=== PATIENT | male | born 1960 | race American Indian/Alaskan Native ===

== ENCOUNTER 2019-07-10 19:59 | Emergency (ER) | payer SELFPAY ==
[2019-07-10 20:45] VITALS: BP 125/72
--- NOTE | 2019-07-10 21:33 | Event Note ---
ED Screening Note Date of service: 07/10/19 Time: 21:30 ED Screening Note: This is a 58 y.o. M. that presents to the ER with chest pain since this morning. Current smoker Reports chest pain is worse than usual. This initial assessment/diagnostic orders/clinical plan/treatment(s) is/are subject to change based on patients health status, clinical progression and re- assessment by fellow clinical providers in the ED. Further treatment and workup at subsequent clinical providers discretion. Patient/guardian urged not to elope from the ED as their condition may be serious if not clinically assessed and managed. Initial orders include: Labs, ekg, & cxr
[2019-07-10 22:08] LABS: Basophils # (Auto) 0.1 K/mm3 (0.0-0.1); Basophils % (Auto) 1.4 % (0.0-1.8); Eosinophils # (Auto) 0.1 K/mm3 (0.0-0.4); Hematocrit 36.9 % (35.5-45.6); Hemoglobin 12.5 gm/dl (11.8-15.2); Lymphocytes # (Auto) 1.7 K/mm3 (1.2-5.4); Lymphocytes % (Auto) 40.5 % (13.4-35.0); Mean Corpuscular HGB Conc 34 % (32-34); Mean Corpuscular Volume 93 fl (84-94); Monocytes # (Auto) 0.3 K/mm3 (0.0-0.8); Monocytes % (Auto) 8.1 % (0.0-7.3); Platelet Count 194 K/mm3 (140-440); Red Blood Count 3.99 M/mm3 (3.65-5.03); Red Cell Distribution Width 13.8 % (13.2-15.2)
[2019-07-10 22:19] LABS: BUN/Creatinine Ratio 15; Blood Urea Nitrogen 12 mg/dL (9-20); Hemolysis Index 8
--- NOTE | 2019-07-10 22:37 | XRay Report ---
CHEST 1 VIEW INDICATION: MAIN: Chest Pain Pt. c/o pain to left side neck that radiates to shoulder and chest. COMPARISON: None FINDINGS: Support devices: None Heart: Normal Lungs/Pleura: No acute pulmonary or pleural findings. IMPRESSION: 1. No acute disease. Signer Name: Liu Cross MD Signed: 07/10/2019 10:33 PM Workstation Name: [email or web address]
[2019-07-10] MEDS ORDERED: KETOROLAC 30 MG/1 ML INJ IM ONE (23:41)
[2019-07-10] MEDS ORDERED: CYCLOBENZAPRINE 10 MG TAB PO ONE (23:41)
--- NOTE | 2019-07-11 01:30 | Emergency Department Report ---
ED General Adult HPI - General Chief complaint: Chest Pain Stated complaint: CHEST AND LT SHOULDER PAIN Time Seen by Provider: 07/10/19 21:30 Source: patient Mode of arrival: Ambulatory Limitations: No Limitations - History of Present Illness Initial comments: Patient is a 58-year-old male who presents emergency room with complaints of generalized chest pain that began 3 days ago. He states that he also has left- sided neck pain and left-sided shoulder pain. He describes the pain as a tightness and spasms. He states his pain is worse with movement and it is difficult to get comfortable to sleep. He denies any shortness of breath, nausea, vomiting, diaphoresis, leg swelling. He states his only past medical history is anemia and bradycardia. He states that he has an adverse reaction to ibuprofen which gives him flatulence. Patient states that he is a smoker. Severity scale (0 -10): 3 - Related Data Previous Rx's Medication Instructions Recorded Last Taken Type Cyclobenzaprine HCl [Flexeril 5 MG 5 mg PO QHS PRN #12 tablet 07/11/19 Unknown Rx TAB] Naproxen [EC-Naproxen] 375 mg PO BID PRN #14 tablet. 07/11/19 Unknown Rx Allergies Allergy/AdvReac Type Severity Reaction Status Date / Time ibuprofen Allergy Unknown Verified 07/10/19 20:02 ED Review of Systems ROS: Stated complaint: CHEST AND LT SHOULDER PAIN Other details as noted in HPI Comment: All other systems reviewed and negative ED Past Medical Hx - Past Medical History Previous Medical History?: Yes Additional medical history: Hypotension - Surgical History Past Surgical History?: No - Social History Smoking Status: Current Every Day Smoker Substance Use Type: None - Medications Home Medications: Home Medications Medication Instructions Recorded Confirmed Last Taken Type Cyclobenzaprine HCl [Flexeril 5 MG 5 mg PO QHS PRN #12 tablet 07/11/19 Unknown Rx TAB] Naproxen [EC-Naproxen] 375 mg PO BID PRN #14 tablet. 07/11/19 Unknown Rx ED Physical Exam - General Limitations: No Limitations General appearance: alert, in no apparent distress - Head Head exam: Present: atraumatic, normocephalic - Eye Eye exam: Present: normal appearance - ENT ENT exam: Present: mucous membranes moist - Neck Neck exam: Present: normal inspection, tenderness (TTP over the left SCM muscle, no crepitus, no ecchymosis, no deformity, no carotid bruit bilaterally, no midline C-spine tenderness, no step offs, no deformities), full ROM - Respiratory Respiratory exam: Present: normal lung sounds bilaterally, chest wall tenderness (mild generalized anterior chest wall TTP). Absent: respiratory distress, wheezes, rales, rhonchi, stridor, accessory muscle use, decreased breath sounds, prolonged expiratory - Cardiovascular Cardiovascular Exam: Present: regular rate, normal rhythm, normal heart sounds. Absent: systolic murmur, diastolic murmur, rubs, gallop - Extremities Exam Extremities exam: Present: other (TTP over the left trapezius muscle, no deformity, no crepitus, no ecchymosis) - Neurological Exam Neurological exam: Present: alert, oriented X3 - Psychiatric Psychiatric exam: Present: normal affect, normal mood - Skin Skin exam: Present: warm, dry, intact ED Course Vital Signs 07/10/19 07/10/19 07/11/19 20:10 21:30 01:41 Temperature 98.4 F 98.4 F Pulse Rate 62 60 52 L Respiratory 18 18 17 Rate Blood Pressure 125/72 125/72 O2 Sat by Pulse 100 100 99 Oximetry ED Medical Decision Making - Lab Data Result diagrams: 07/10/19 21:45 07/10/19 21:45 Lab Results 07/10/19 07/10/19 07/11/19 Range/Units 21:45 21:45 00:24 WBC 4.2 L (4.5-11.0) K/mm3 RBC 3.99 (3.65-5.03) M/mm3 Hgb 12.5 (11.8-15.2) gm/dl Hct 36.9 (35.5-45.6) % MCV 93 (84-94) fl MCH 31 (28-32) pg MCHC 34 (32-34) % RDW 13.8 (13.2-15.2) % Plt Count 194 (140-440) K/mm3 Lymph % (Auto) 40.5 H (13.4-35.0) % [place] % (Auto) 8.1 H (0.0-7.3) % Eos % (Auto) 3.0 (0.0-4.3) % Baso % (Auto) 1.4 (0.0-1.8) % Lymph # 1.7 (1.2-5.4) K/mm3 [place] # 0.3 (0.0-0.8) K/mm3 Eos # 0.1 (0.0-0.4) K/mm3 Baso # 0.1 (0.0-0.1) K/mm3 Seg Neutrophils % 47.0 (40.0-70.0) % Seg Neutrophils # 2.0 (1.8-7.7) K/mm3 Sodium 143 (137-145) mmol/L Potassium 4.1 (3.6-5.0) mmol/L Chloride 106.6 (98-107) mmol/L Carbon Dioxide 27 (22-30) mmol/L Anion Gap 14 mmol/L BUN 12 (9-20) mg/dL Creatinine 0.8 (0.8-1.5) mg/dL Estimated GFR > 60 ml/min BUN/Creatinine Ratio 15 % Glucose 81 (75-100) mg/dL Calcium 9.0 (8.4-10.2) mg/dL Troponin T < 0.010 < 0.010 (0.00-0.029) ng/mL - EKG Data EKG shows normal: sinus rhythm, axis, intervals, QRS complexes, ST-T waves Rate: bradycardia - Radiology Data Radiology results: report reviewed CHEST 1 VIEW INDICATION: MAIN: Chest Pain Pt. c/o pain to left side neck that radiates to shoulder and chest. COMPARISON: None FINDINGS: Support devices: None Heart: Normal Lungs/Pleura: No acute pulmonary or pleural findings. IMPRESSION: 1. No acute disease. Signer Name: Liu Cross MD Signed: 07/10/2019 10:33 PM Workstation Name: [id number] Transcribed By: TM Dictated By: Liu Cross MD Electronically Authenticated By: Liu Cross MD Signed Date/Time: 07/10/192232 DD/ 31 TD/TT: - Medical Decision Making Patient is a 58-year-old male who presents emergency room with complaints of generalized chest pain that began 3 days ago. He states that he also has left- sided neck pain and left-sided shoulder pain. He describes the pain as a tightness and spasms. He states his pain is worse with movement and it is difficult to get comfortable to sleep. He denies any shortness of breath, nausea, vomiting, diaphoresis, leg swelling. He states his only past medical history is anemia and bradycardia. He states that he has an adverse reaction to ibuprofen which gives him flatulence. Patient states that he is a smoker. vitals are normal. on exam: TTP over the left SCM muscle, no crepitus, no ecchymosis, no deformity, no carotid bruit bilaterally, no midline C-spine tenderness, no step offs, no deformities, mild generalized anterior chest wall TTP, TTP over the left trapezius muscle, no deformity, no crepitus, no ecchymosis. Patient given Toradol and Flexeril and his discomfort significantly improved. Chest x-ray with no acute process. EKG within normal limits. Patient is low risk for PE based on wells criteria. Labs are stable. Troponin is negative 2. pts heart score is 2. SEGUN score is 0. Patient is at a low risk for cardiac event. Will have patient follow up with a [employer] worker as an outpatient for chest pain. will give patient prescription for naproxen and Flexeril due to muscle strain. advised pt Please take medication as prescribed as needed. Do not drive or operate heavy machinery while taking muscle relaxer. May use ice pack, heating pad, rest, epsom salt bath. Follow-up with a [employer] worker and a primary care doctor in the next 2-3 days. Return to the emergency room for any new or worsening symptoms. - Differential Diagnosis ACS, PE, carotid stenosis, aortic aneurysm, dissection, muscle strain Critical care attestation.: If time is entered above; I have spent that time in minutes in the direct care of this critically ill patient, excluding procedure time. ED Disposition Clinical Impression: Atypical chest pain, Sternocleidomastoid muscle tenderness Strain of left trapezius muscle Qualifiers: Encounter type: initial encounter Qualified Code(s): S46.812A - Strain of other muscles, fascia and tendons at shoulder and upper arm level, left arm, initial encounter Disposition: TO HOME OR SELFCARE Is pt being admited?: No Does the pt Need Aspirin: No Condition: Stable Instructions: Chest Pain (ED), Muscle Strain (ED) Additional Instructions: Please take medication as prescribed as needed. Do not drive or operate heavy machinery while taking muscle relaxer. May use ice pack, heating pad, rest, epsom salt bath. Follow-up with a [employer] worker and a primary care doctor in the next 2-3 days. Return to the emergency room for any new or worsening symptoms. Prescriptions: Cyclobenzaprine HCl [Flexeril 5 MG TAB] 5 mg PO QHS PRN #12 tablet PRN Reason: Muscle Spasm Naproxen [EC-Naproxen] 375 mg PO BID PRN #14 tablet.dr GALEAS Reason: pain Referrals: PENITAS HUMZA JOAQUIN MD [Primary Care Provider] - [facility] Days [facility] - 2-3 Days Time of Disposition: 01:30 Print Language: BERMUDIAN
== END 2019-07-11 01:41 | disposition home or self-care (01) ==
LOC: ED 19:59
DX: S46.812A Strain of other muscles, fascia and tendons at shoulder and upper arm level, left arm, initial encounter (principal); M79.10 Myalgia, unspecified site; I10 Essential (primary) hypertension; F17.200 Nicotine dependence, unspecified, uncomplicated; Z79.899 Other long term (current) drug therapy; Z88.8 Allergy status to other drugs, medicaments and biological substances; X58.XXXA Exposure to other specified factors, initial encounter; Y93.89 Activity, other specified; Y92.89 Other specified places as the place of occurrence of the external cause; Y99.8 Other external cause status
CPT/HCPCS: 36415; 71045; 80048; 84484; 85025; 93005; 93010; 96372; 99284; J1885